=== PATIENT | female | born 2000 | race Caucasian/White ===

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

== ENCOUNTER 2019-01-29 15:15 | Emergency (ER) | payer MEDICAID ==
[~2019-01-29] VITALS: Ht 160 cm; Wt 128.1 kg
[2019-01-29 15:36] VITALS: BP 149/95
[2019-01-29] MEDS ORDERED: PROPARACAINE OPHTH 0.5%, 15ML ONE (17:08)
[2019-01-29] MEDS ORDERED: FLUORESCEIN OPHTHALMIC 1 MG STRIP ONE (17:08)
[2019-01-29] MEDS ORDERED: KETOROLAC 30 MG/1 ML ONE (17:49)
--- NOTE | 2019-01-29 17:53 | NUR ---
MEDICATED PER EMAR FOR BACK PAIN RATED AT 6/10
[2019-01-29] MEDS ORDERED: KETOROLAC 30 MG/1 ML IM ONE (18:00)
[2019-01-29 18:16] LABS: HCG UR SG 1.014 (1.003-1.030)
--- NOTE | 2019-01-29 18:38 | NUR ---
PROVIDER WOULD LIKE TO D/C PER PARENTS REQUEST PRIOR TO US RESULT. COMPUTER OPERATIONS ANALYST CALLED LAB TO EXPEDITE-LAB REPORTS RESULT CANNOT BE POSTED FOR ANOTHER 10 MINUTES PATIENT/FAMILY ADVISED TO PROVIDE GOOD CONTACT# WITH D/C DESK ON DISCHARGE
[2019-01-29 18:39] LABS: MICROSCOPIC INDICATED
[2019-01-29 18:40] LABS: CULTURE INDICATED? YES
== END 2019-01-29 18:07 | disposition home or self-care (01) ==
LOC: ED 18:01
DX: H10.89 Other conjunctivitis (principal); M54.5 Low back pain
CPT/HCPCS: 81001; 81025; 87086; 96372; 99283; J1885

== ENCOUNTER 2019-02-20 20:47 | Emergency (ER) | payer MEDICAID ==
[~2019-02-20] VITALS: Ht 157.5 cm; Wt 129.5 kg
[2019-02-20 20:56] VITALS: BP 124/88
[2019-02-20] MEDS ORDERED: IBUPROFEN 800 MG TABLET PO ONE (21:22)
[2019-02-20] MEDS ORDERED: IBUPROFEN 200 MG TABLET ONE (21:29)
== END 2019-02-20 21:54 | disposition home or self-care (01) ==
LOC: ED 21:20
DX: H60.501 Unspecified acute noninfective otitis externa, right ear (principal); H60.11 Cellulitis of right external ear; B30.9 Viral conjunctivitis, unspecified
CPT/HCPCS: 99283

== ENCOUNTER 2019-09-24 19:36 | Emergency (ER) | payer MEDICAID ==
[~2019-09-24] VITALS: Ht 157.5 cm; Wt 138.8 kg
[2019-09-24 19:51] VITALS: BP 149/92
[2019-09-24] MEDS ORDERED: NEOSPORIN OINT. PKT 1 PACKET ONE (21:09)
== END 2019-09-24 21:32 ==
LOC: ED 21:25
DX: L03.032 Cellulitis of left toe (principal); E66.01 Morbid (severe) obesity due to excess calories; F17.200 Nicotine dependence, unspecified, uncomplicated
CPT/HCPCS: 99283

== ENCOUNTER 2019-12-31 19:31 | Emergency (ER) | payer MEDICAID ==
[~2019-12-31] VITALS: Ht 157.5 cm; Wt 139.4 kg
[2019-12-31 19:33] VITALS: BP 130/100
[2019-12-31] MEDS ORDERED: DEXAMETHASONE 4 MG/ML, 1ML PO ONE (20:00)
[2019-12-31] MEDS ORDERED: DEXAMETHASONE 4 MG/ML, 1ML ONE (20:08)
== END 2019-12-31 20:36 | disposition home or self-care (01) ==
LOC: ED 20:30
DX: J02.8 Acute pharyngitis due to other specified organisms (principal); B97.89 Other viral agents as the cause of diseases classified elsewhere; R00.0 Tachycardia, unspecified
CPT/HCPCS: 87081; 87880; 99283; J1100

== ENCOUNTER 2020-01-11 14:58 | Emergency (ER) | payer MEDICAID ==
[~2020-01-11] VITALS: Ht 157.5 cm; Wt 139.9 kg
[2020-01-11] MEDS ORDERED: DEXAMETHASONE 4 MG TABLET PO ONE (15:30)
[2020-01-11 16:18] VITALS: BP 121/84
--- NOTE | 2020-01-11 16:20 | NUR ---
Patient given discharge AND RX instructions and they have confirmed that they understand the instructions. Patient ambulatory with steady gait.
== END 2020-01-11 16:22 | disposition home or self-care (01) ==
LOC: ED 16:00
DX: J02.0 Streptococcal pharyngitis (principal); E66.01 Morbid (severe) obesity due to excess calories; Z68.43 Body mass index [BMI] 50.0-59.9, adult
CPT/HCPCS: 99283

== ENCOUNTER 2020-03-20 14:55 | Emergency (ER) | payer MEDICAID ==
[~2020-03-20] VITALS: Ht 157.5 cm; Wt 140.0 kg
[2020-03-20 15:01] VITALS: BP 162/98
[2020-03-20] MEDS ORDERED: IBUPROFEN 600 MG TABLET ONE (15:23)
[2020-03-20] MEDS ORDERED: IBUPROFEN 600 MG TABLET PO ONE (15:30)
--- NOTE | 2020-03-20 15:46 | NUR ---
Patient and mom given discharge instructions and prescription and they have confirmed that they understand the instructions. Patient ambulatory with steady gait and use of cane from ED with mom.
== END 2020-03-20 15:47 | disposition home or self-care (01) ==
LOC: ED 15:15
DX: M79.672 Pain in left foot (principal); M77.8 Other enthesopathies, not elsewhere classified; J45.909 Unspecified asthma, uncomplicated
CPT/HCPCS: 99283

== ENCOUNTER 2020-07-19 18:45 | Emergency (ER) | payer MEDICAID ==
[~2020-07-19] VITALS: Ht 157.5 cm; Wt 143.0 kg
[2020-07-19 18:47] VITALS: BP 135/91
[2020-07-19] MEDS ORDERED: IBUPROFEN 600 MG TABLET ONE (19:14)
[2020-07-19] MEDS ORDERED: OXYcodone/APAP 5/325MG TABLET ONE (19:15)
[2020-07-19] MEDS ORDERED: IBUPROFEN 600 MG TABLET PO ONE (19:30)
[2020-07-19] MEDS ORDERED: OXYcodone/APAP 5/325MG TABLET PO ONE (19:30)
== END 2020-07-19 19:25 | disposition home or self-care (01) ==
LOC: ED 19:01
DX: K02.9 Dental caries, unspecified (principal)
CPT/HCPCS: 99283

== ENCOUNTER 2020-10-17 20:29 | Emergency (ER) | payer MEDICAID ==
[~2020-10-17] VITALS: Ht 157.5 cm; Wt 140.0 kg
--- NOTE | 2020-10-17 20:41 | NUR ---
Pt presents to ed with pain in right ankle. pt states she tripped in a pothole outside her home in platform heels. pt states outside of ankle hurts and she has numbness in her toes. pt on dinesh.
[2020-10-17 23:45] VITALS: BP 125/82
--- NOTE | 2020-10-17 23:45 | NUR ---
Patient given discharge instructions and they have confirmed that they understand the instructions. Patient ambulatory with steady gait.
== END 2020-10-17 23:47 | disposition home or self-care (01) ==
LOC: ED 23:38
DX: S93.491A Sprain of other ligament of right ankle, initial encounter (principal); J45.909 Unspecified asthma, uncomplicated; E66.01 Morbid (severe) obesity due to excess calories; Z68.43 Body mass index [BMI] 50.0-59.9, adult; W18.30XA Fall on same level, unspecified, initial encounter; Y93.89 Activity, other specified; Y92.009 Unspecified place in unspecified non-institutional (private) residence as the place of occurrence of the external cause; Y99.8 Other external cause status
CPT/HCPCS: 99283

== ENCOUNTER 2020-10-31 20:46 | Emergency (ER) | payer MEDICAID ==
[~2020-10-31] VITALS: Ht 160 cm; Wt 109.1 kg
[2020-11-01 00:27] VITALS: BP 138/89
[2020-11-01] MEDS ORDERED: KETOROLAC 30 MG/1 ML ONE (00:38)
[2020-11-01] MEDS ORDERED: KETOROLAC 30 MG/1 ML IM ONE (01:00)
== END 2020-11-01 00:47 | disposition home or self-care (01) ==
LOC: ED 21:00
DX: S93.401A Sprain of unspecified ligament of right ankle, initial encounter (principal); J45.909 Unspecified asthma, uncomplicated; E66.01 Morbid (severe) obesity due to excess calories; Z68.41 Body mass index [BMI] 40.0-44.9, adult; X50.1XXA Overexertion from prolonged static or awkward postures, initial encounter; Y93.89 Activity, other specified; Y92.410 Unspecified street and highway as the place of occurrence of the external cause; Y99.8 Other external cause status
CPT/HCPCS: 73610; 96372; 99283; J1885

== ENCOUNTER 2020-12-10 18:22 | Emergency (ER) | payer MEDICAID ==
[~2020-12-10] VITALS: Ht 160 cm; Wt 141.3 kg
[2020-12-10 19:31] VITALS: BP 157/87
== END 2020-12-10 20:09 | disposition home or self-care (01) ==
LOC: ED 19:45
DX: J18.9 Pneumonia, unspecified organism (principal); Z20.822 Contact with and (suspected) exposure to COVID-19; R00.0 Tachycardia, unspecified; J45.909 Unspecified asthma, uncomplicated; E66.01 Morbid (severe) obesity due to excess calories; Z68.43 Body mass index [BMI] 50.0-59.9, adult
CPT/HCPCS: 71045; 99284; Q0162; U0003; U0005